=== PATIENT | male | born 1965 | race Caucasian/White ===

== ENCOUNTER 2021-02-28 07:54 | Day surgery (SDC) | payer OTHER, SELFPAY ==
--- NOTE | 2021-02-25 11:57 | EKG12_ITS ---
Test Reason : PREOP Blood Pressure : / mmHG Vent. Rate : 067 BPM Atrial Rate : 067 BPM P-R Int : 138 ms QRS Dur : 102 ms QT Int : 370 ms P-R-T Axes : 028 -16 021 degrees QTc Int : 390 ms Normal sinus rhythm Normal ECG Confirmed by CRISTINA AVILA, YESENIA ([id number]), editor managing newspaper COLBY BAUGH ([id number]) on 03/01/2021 7:50:08 AM Referred By: Fercho Link Confirmed By:YESENIA EVANS MD
[2021-02-25 13:22] LABS: Hematocrit 40.5 % (40-54); Hemoglobin 13.6 g/dL (13.0-16.5); Mean Corp Hgb Conc 33.6 g/dL (32-36); Mean Corpuscular Hgb 31.9 pg (27.0-32.0); Mean Corpuscular Volume 95.1 fL (80-94); Mean Platelet Vol. 9.2 fl (6.2-12.0); Platelet Count 250 K/mm3 (150-450); RBC Distribution Width CV 12.1 % (11.6-14.6); Red Blood Count 4.26 M/mm3 (4.6-6.2); White Blood Count 7.1 K/mm3 (4.4-11.0)
[2021-02-25 13:46] LABS: Anion Gap 5 (5-15); BUN 13 mg/dL (7-18); BUN/Creat Ratio 14.5 RATIO (10-20); Calcium,Total 8.6 mg/dL (8.5-10.1); Chloride 108 mmol/L (98-107); EST Glomerular Filtration Rate 93 mL/min (>60); Est Glom Filt Rate - Afr Amer 113 mL/min (>60); Glucose 91 mg/dL (74-106); Potassium 3.6 mmol/L (3.5-5.1); Sodium Level 140 mmol/L (136-145)
--- NOTE | 2021-02-28 | IMM_PTH ---
PATIENT: CALI ROMAN LOC: [facility] – [place] U#:[id number] AGE/SX: 55/M ROOM: RE02/28/[address]: Dr. Fercho Link MD : 1965 BED: DIS: 02/28/2021 SPEC #: [id number] RECD: 03/01/21 12:57 STATUS: CHARY REQ #: [id number] [facility]: 02/28/21 00:[address]: Fercho Link DEPT: IMMUNOHISTOCHEMISTRY RECD BY: Juliette Arteaga Tissues: A - Tonsil, NOS B - Tonsil, NOS Procedures: CD45 (add) CK14 (add) CK20 (add) CK5-6 (add) CK7 (add) KI-67 (add) P16 (add) Vimentin (add) Pankeratin (initial) P40 (add) PHYSICIAN & INSTITUTION [place] [phone] SPECIMEN INFORMATION: Tissue Source: A - Right tonsil, B ? Right tonsil Clinical Info: Pain in throat, malignant neoplasm of overlapping sites of tonsil Specimen Number: [id number] A & B CPT code: 86403 x2, 69311 x10 METHODOLOGY: Deparaffinized sections of prefer/formalin-fixed tissue or PAP/DQ stained slides are incubated with monoclonal/polyclonal antibodies/oligonucleotide probes. Localization is made via biotin free immunoperoxidase method. Appropriate controls are performed and reacted as expected. Results on target cell population are indicated in the following table: RESULTS: ANTIBODY / CLONE RESULT Block A AE1-3 (AE1/AE3/PCK26) positive CK5-6 (D5 & 1684) positive Block B AE1-3 (AE1/AE3/PCK26) positive CK7 (OV-TL12/30) negative CK20 (KS20.8) negative CD45 (RP2/18) negative Vimentin (V9) positive, dim CK5-6 (D5 & 1684) positive CK14 (LL002) positive P40 (BC28) positive P16 (E6H4) positive Ki-67 (30-9) positive, >95% These tests were developed and their performance characteristics determined by [facility]. They may not have been cleared or approved by the [place]. Food and Drug Administration. The FDA has determined that such clearance or approval is not necessary. The above immunohistochemical/dualISH markers are ordered and reviewed by the Pathologist. INTERPRETATION: A. Right tonsil, biopsy: Invasive squamous cell carcinoma. B. 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 AM:kathryn 03/02/2021 Case has been reviewed in consultation with Dr. Bar who concurs with the above diagnosis. IDC:SJ
--- NOTE | 2021-02-28 | TONS_PTH ---
PATIENT: CALI ROMAN LOC: [facility] [place] U#:[id number] AGE/SX: 55/M ROOM: RE02/28/[address]: Dr. Fercho Link MD : 1965 BED: DIS: 02/28/2021 SPEC #: [id number] RECD: 02/28/21 09:51 STATUS: CHARY JABARI #: [id number] [facility]: 02/28/21 00:[address]: Fercho Link DEPT: SURGICAL PATHOLOGY RECD BY: Juliette Arteaga Tissues: A - Tonsil, NOS B - Tonsil, NOS C - Tonsil, NOS Procedures: Frozen Section (charge) Surgery Specimen Level III HEADER OPERATION: Tonsillectomy PRE-OP DIAGNOSIS: Pain in throat, malignant neoplasm of overlapping sites of tonsil TISSUE SUBMITTED: A ? Right tonsil biopsy, FS, B ? Right tonsil, C ? Left tonsil FROZEN SECTION DIAGNOSIS A. Right tonsil, biopsy: Infiltrating blue cell neoplasm with cautery changes. AM:kathryn 02/28/2021 MICROSCOPIC DIAGNOSIS A. 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 B. 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 See comment. C. Left tonsil, tonsillectomy: Rare benign epithelial inclusion cysts. Organisms consistent with actinomyces. No evidence of malignancy. AM:kathryn 03/01/2021 COMMENT B. Immunohistochemistry ([id number]) supports the above diagnosis. Case has been reviewed in consultation with Dr. Bar who concurs with the above diagnosis. IDC:SJ MICROSCOPIC DESCRIPTION Slides are reviewed. GROSS DESCRIPTION A - Received fresh for frozen section consultation labeled with the patient's name is a specimen designated right tonsil biopsy. The specimen consists of an irregular fragment of red-chappell soft tissue measuring 0.5 x 0.5 x 0.2 cm. The specimen is submitted in its entirety for frozen section consultation in one block. B - Received in fixative is one container labeled with the patient's name and designated right tonsil. The specimen consists of an irregular fragment of red-chappell soft tissue measuring 0.7 x 0.5 x 0.3 cm. The specimen is submitted in its entirety in one cassette. C - Received in fixative is one container labeled with the patient's name and designated left tonsil. The specimen consists of a tonsil measuring 2 x 1.6 x 0.8 cm and weighing 1.0 gm. No gross lesions are identified. The specimen is inked, serially sectioned and totally submitted in one cassette. / AM:kathryn 02/28/21 TC:0 CPT: 99409h1,26383, 48746
[2021-02-28 08:25] VITALS: BP 146/82; PULSE 62; RESP 16; TEMP 37.1; O2SAT 97; BMI 38.4
[2021-02-28] MEDS: Lactated Ringers 1,000 ML 100 ML IV (08:30)
[2021-02-28] MEDS: Bupivacaine Mpf 0.5% 30 ML VIAL (09:45)
--- NOTE | 2021-02-28 10:06 | PCM.DC.SUM ---
Providers Primary Care Physician: KASANDRA MADERA Reason For Visit: TONSILLECTOMY Medications at Discharge Home Medications ascorbic acid (vitamin C) [Vitamin C] 500 mg PO DAILY 02/22/21 ergocalciferol (vitamin D2) [Vitamin D2] 1,250 mcg PO QWEEK 02/22/21 lisinopril 20 mg PO QHS 02/22/21 metoprolol tartrate 50 mg PO 1500 02/22/21 metoprolol tartrate 100 mg PO DAILY 02/22/21 rosuvastatin [Crestor] 20 mg PO QHS 02/22/21 zinc acetate 50 mg PO DAILY 02/22/21 Weight / BMI Weight Weight: 108 kg Body Mass Index (BMI) 38.4 ABG / Lab / Microbiology Data Result Diagrams: 02/25/21 12:13 02/25/21 12:13 Microbiology: Microbiology 02/25/21 12:00 Interface Orders SARS-CoV-2 Antigen (Rapid) - Final D/C Instructions Discharge Diet: Soft diet Additional Activity Instructions: Soft diet x 2 weeks Meaningful Use Info Meaningful Use Diagnoses (Choose all that apply): None applicable Discharge Plan Admission Attending Provider: Fercho Link Discharge Orders/Prescriptions Prescriptions: No Action zinc acetate 50 mg (zinc) Capsule 50 mg PO DAILY RF: 0 metoprolol tartrate 100 mg Tablet 100 mg PO DAILY RF: 0 lisinopril 20 mg Tablet 20 mg PO QHS RF: 0 ascorbic acid (vitamin C) [Vitamin C] 500 mg Tablet 500 mg PO DAILY RF: 0 metoprolol tartrate 50 mg Tablet 50 mg PO 1500 RF: 0 ergocalciferol (vitamin D2) [Vitamin D2] 1,250 mcg (50,000 unit) Capsule 1,250 mcg PO QWEEK RF: 0 rosuvastatin [Crestor] 20 mg Tablet 20 mg PO QHS RF: 0
--- NOTE | 2021-02-28 10:08 | PCM.OPRPT ---
Report of Operation Date of Procedure: 02/28/21 Pre-Operative Diagnosis: right tonsil neoplasm Post-Operative Diagnosis: same Surgery/Procedure Performed:: left tonsillectomy; Biopsy of right tonsil neoplasm Surgeon: Fercho Link Type of Anesthesia: General Anesthesiologist: Sonu Bloom Estimated Blood Loss (mL): minimal Description of Procedure: The patient was taken to the operating room on 02/28/2021. He was placed in the supine position on the operating room table. He was given sufficient general endotracheal anesthesia. The table was turned 90 degrees in a clockwise fashion. A Alejo mouthgag was inserted the patient's mouth and he was suspended on a Mccracken stand. It was obvious that there was a large right tonsil neoplasm involving the right anterior tonsillar pillar. It also invaded into the base of tongue. I could not mobilize the tumor laterally to establish a plane laterally to the mass. I thus elected to perform incisional biopsy. I excised a piece of tissue with Bovie cautery and sent this for frozen section to make sure that I had adequate specimen. Absolute hemostasis was achieved on the biopsy bed with suction cautery. Another piece was kept for further analysis. The left tonsil was grasped with an Allis clamp and removed using Bovie cautery. Absolute hemostasis was achieved using suction cautery. The frozen section were result results were back by this time. 0.5% Marcaine was placed on adenoid sponge and placed in the left tonsillar fossa and the biopsy bed on the right for 1 minute and then removed. The gag was closed. It was reopened to inspect for bleeding there was none. The gag was then removed. Patient was awoken and brought to recovery room in stable condition. Blood loss minimal, replacement none. Sponge, needle, and instrument count were correct at the end of the procedure.
[2021-02-28 10:20] VITALS: BP 140/81; BP 146/82; PULSE 80; RESP 16; TEMP 36.1; O2SAT 99
[2021-02-28 10:30] VITALS: BP 146/82; BP 155/96; PULSE 78; RESP 16; O2SAT 96
[2021-02-28 10:46] VITALS: BP 146/82; BP 146/84; PULSE 97; RESP 16; TEMP 36.4; O2SAT 96
[2021-02-28] MEDS: HYDROcodone Bitartrate/Apap 5/325 Tablet PO (11:15)
[2021-02-28 11:56] VITALS: BP 146/82; BP 160/98; PULSE 54; RESP 18; TEMP 35.9; O2SAT 98
== END 2021-02-28 11:58 | disposition home or self-care (01) ==
LOC: SDC 07:54 → AC 07:54
PROVIDERS: Anesthesiology; Referring Provider Otolaryngology; Visit Provider Otolaryngology
PROC: (CPT 42800; principal; 2021-02-28 09:20)
DX: C09.8 Malignant neoplasm of overlapping sites of tonsil (principal); F41.9 Anxiety disorder, unspecified; E78.00 Pure hypercholesterolemia, unspecified; I10 Essential (primary) hypertension; Z79.899 Other long term (current) drug therapy
CPT/HCPCS: 00170; 42800; 42826; 36415; 80048; 85027; 87426; 88304; 88331; 88341; 88342; 93005; C9803; J7120; J2405